=== PATIENT | male | born 1950 | race African-American/Black ===

== ENCOUNTER 2018-05-01 15:20 | Emergency (ER) | payer MEDICARE ==
[~2018-05-01] VITALS: Ht 182.9 cm; Wt 97.7 kg
[~2018-05-01 15:20] MED LIST: GABA-529 PO; PHEN100C23 PO
[2018-05-01] MEDS ORDERED: PERTUSS(ACELL),DIPH,TET VAC/PF 0.5 ML VIAL IM ONE (17:00)
[2018-05-01] MEDS: ACETAMINOPHEN 500 MG TABLET PO ONE ×2 (17:05→17:53)
[2018-05-01] MEDS ORDERED: BACITRACIN 0.9 GM PACKET OINTMENT TP ONE (17:15)
[2018-05-01] MEDS ORDERED: LIDOCAINE HCL 1% 10 ML VIAL INJ ONE (17:15)
[2018-05-01 17:27] VITALS: BP 138/75
== END 2018-05-01 17:32 | disposition home or self-care (01) ==
LOC: EMS 15:21
DX: S61.412A Laceration without foreign body of left hand, initial encounter (principal); Z88.6 Allergy status to analgesic agent; Z88.8 Allergy status to other drugs, medicaments and biological substances; Z79.899 Other long term (current) drug therapy; W45.8XXA Other foreign body or object entering through skin, initial encounter; Y93.89 Activity, other specified; Y92.89 Other specified places as the place of occurrence of the external cause; Y99.8 Other external cause status
CPT/HCPCS: 12001; 90471; 90715; 99283; J3490